=== PATIENT | female | born 1960 | race Caucasian/White ===

== ENCOUNTER 2022-05-04 15:45 | Observation (INO) ==
[2022-05-18] MEDS ORDERED: LR 1,000 ML IV 1,000 ML IV ONE (06:49)
[2022-05-18] MEDS ORDERED: CLEOCIN 600 MG IV PREMIX 600 MG/50 ML BAG IV ONE (06:49)
[2022-05-18] MEDS ORDERED: MARCAINE 0.25% INJ ONE (06:59)
[2022-05-18] MEDS ORDERED: FENTANYL VIAL INJ 100 mcg ONE ×2 (07:16→09:52)
[2022-05-18] MEDS ORDERED: VERSED ONE (07:16)
[2022-05-18] MEDS ORDERED: DIPRIVAN VIAL 20 ML ONE (07:18)
[2022-05-18] MEDS ORDERED: ZEMURON 100 MG VIAL ONE (07:19)
[2022-05-18] MEDS ORDERED: QUELICIN (OR ANECTINE) ONE (07:19)
[2022-05-18] MEDS ORDERED: NAROPIN 0.75% EPI ONE (07:21)
[2022-05-18 07:26] VITALS: BMI 24.2
[2022-05-18] MEDS ORDERED: SUPRANE ONE ×2 (07:50→10:12)
[2022-05-18] MEDS ORDERED: EPHEDRINE SULFATE INJ ONE (08:06)
[2022-05-18] MEDS ORDERED: XYLOCAINE 2 % (PLAIN) ONE (08:06)
[2022-05-18] MEDS ORDERED: BRIDION ONE (08:44)
[2022-05-18] MEDS ORDERED: ZOFRAN INJ 4 MG VIAL ONE (08:45)
[2022-05-18] MEDS ORDERED: TORADOL 30 MG VIAL ONE (09:08)
[2022-05-18] MEDS: DILAUDID INJ IVP PRN ×6 (10:35→18:05)
[2022-05-18] MEDS ORDERED: ZOFRAN INJ 4 MG VIAL IVP PRN ×2 (10:37→11:10)
[2022-05-18] MEDS ORDERED: BENADRYL INJ 50 MG VIAL IVP PRN (10:37)
[2022-05-18] MEDS ORDERED: REGLAN INJ 10 MG VIAL IVP PRN (10:37)
[2022-05-18] MEDS ORDERED: BARHEMSYS INJ IVP PRN (10:37)
[2022-05-18] MEDS ORDERED: PHENERGAN INJ 25 MG IM PRN (10:37)
[2022-05-18] MEDS ORDERED: TYLENOL 325 MG TAB PO PRN (11:10)
[2022-05-18] MEDS ORDERED: PROVENTIL NEB TX 0.083% 2.5MG/ 3ML NEB PRN (12:03)
[2022-05-18] MEDS: PERCOCET TAB 5/325 MG PO PRN (17:02)
[2022-05-18] MEDS ORDERED: COLACE CAP 100 MG PO SCH (21:00)
[2022-05-19] MEDS: PERCOCET TAB 5/325 MG PO PRN (00:28)
[2022-05-19] MEDS: DILAUDID INJ IVP PRN ×2 (02:56→08:22)
[2022-05-19 05:52] LABS: BLOOD UREA NITROGEN 7 mg/dL (7-18); CALCIUM 8.6 mg/dL (8.5-10.1); CARBON DIOXIDE 33.1 mmol/L (21-32); CHLORIDE 105 mmol/L (98-107); CREATININE 0.79 mg/dL (0.55-1.02); SODIUM 141 mmol/L (136-145); eGFR NON BLACK RACES > 60 (>60)
[2022-05-19] MEDS ORDERED: LOVENOX INJ 40 MG SYR SC SCH (09:00)
[2022-05-19 12:07] VITALS: BP 130/61
--- NOTE | 2022-05-19 12:15 | NOTE.SOAP ---
Soap Note Note for Day of Date of Exam: 05/19/22 Subjective Data Subjective Data: Patient is seen bedside today by herself. She is resting comfortably in bed with both her lower extremities up on pillows with bedside commode present. Patient states she has had pain in her operative limb since surgery, but the pain medication relieves her of this. Her pain is currently controlled except when she touches the area or moves her ankle. She asks whether she is allowed to go home or not today and we did discuss this for a period of time. No other complaints at time of interview. Denies f,c,n,v,sob, and cp today. Objective Data Objective Data: Posterior splint with dressing in place to left lower extremity - clean, dry, and intact. Does appear the top layer was underdressed and rewrapped looser at patient's request. Vasc: Popliteal pulses palpable, CFT is maintained to the digits, no clinical signs of DVT or compartment syndrome present. Derm: Proximal and distal to the dressing the is warm to cool, normal temp gradient. No strikethrough present. No malodor or clinical signs of infection. Neuro: Protective and light touch sensation in the distal extremity is maintained at preoperative level. No focal neurological deficits noted to left lower extremity. MSK: Pain on palpation of anterior ankle where her incision is located, but not proximally or distal to this. Able to wiggle all digits and move knee through pain free passive ROM. Assessment Assessment: -S/p left total ankle arthroplasty (DOS 05-18-22) - unremarkable post operative course to date Plan Plan: -Patient evaluated and chart reviewed. -I did have a lengthy discussion with the patient about her discharge date/time, her medications we have written for her, the instructions which she will receive when she leaves, and her follow appt which will need to be scheduled within the next 7 days when she is able. -Okay for DC from foot and ankle POV at any time. -Percocet 7.5mg Q4, Zofran 8mg Q8H, Lovenox 40mg QD written and placed in chart. -4 Legged walker and knee scooter Rx written and placed in chart. She states she does not need any further DME to safely ambulate at home. -Leave dressing clean, dry, and intact until follow up appt. -NWB to L LE at all times. -Call number on instructions for follow up appt either today or tomorrow - visit to be within the next 7 days. Call sooner if any problems arise. -Will follow while in house
== END 2022-05-19 12:30 | disposition home or self-care (01) ==
LOC: MED/SURG → EDUNIT# 05-18 09:45
PROVIDERS: ADMIT Obstetrics & Gynecology Obstetrics; ATTEND Obstetrics & Gynecology Obstetrics
DX: R94.31 Abnormal electrocardiogram [ECG] [EKG]; E03.8 Other specified hypothyroidism; M25.572 Pain in left ankle and joints of left foot; E78.2 Mixed hyperlipidemia; R26.89 Other abnormalities of gait and mobility; M12.572 Traumatic arthropathy, left ankle and foot; K21.9 Gastro-esophageal reflux disease without esophagitis; J44.9 Chronic obstructive pulmonary disease, unspecified; M21.172 Varus deformity, not elsewhere classified, left ankle